=== PATIENT | male | born 1975 | race Caucasian/White ===

== ENCOUNTER 2016-12-29 09:00 | Day surgery (SDC) | payer MEDICAID ==
--- NOTE | 2016-12-26 20:37 | EKG REPORT ---
SEVERITY:- OTHERWISE NORMAL ECG - SINUS RHYTHM BORDERLINE LEFT AXIS DEVIATION : Confirmed by: Krysta Ellison 26-Dec-2016 20:36:36
[~2016-12-29 09:00] MED LIST: DEXAMETHASONE SOD PHOSPHATE INJ 4 MG/1 ML VIAL ONE; LACTATED RINGERS 1000 ML IV PRN; LIDOCAINE 0.5% INJ-PF (5 MG/ML) 50 ML SDV SUBCUT PRN; LIDOCAINE 2% INJ-PF (20 MG/ML) 10 ML AMPUL ONE; ONDANSETRON HCL INJ/PF 4 MG/2 ML SDV ONE; SUCCINYLCHOLINE CHLORIDE INJ 200 MG/10 ML VIAL ONE
[2016-12-29] MEDS ORDERED: LIDOCAINE 2%/EPINEPHRINE INJ 1.7 ML CARTRIDGE ONE ×2 (11:22→12:07)
[2016-12-29] MEDS ORDERED: BUPIVACAINE HCL 0.5%/EPI 1:200000 INJ 1.8 ML CARTRIDGE ONE (11:22)
[2016-12-29] MEDS ORDERED: PROPOFOL INJ 200 MG/20 ML VIAL IV ONE ×2 (11:33→13:00)
[2016-12-29] MEDS ORDERED: MIDAZOLAM 2 MG/2 ML INJ ONE (11:33)
[2016-12-29] MEDS ORDERED: FENTANYL CITRATE INJ/PF 100 MCG/2 ML AMPUL ONE ×2 (11:33→13:46)
[2016-12-29] MEDS ORDERED: ACETAMINOPHEN 100 ML IV ONE (11:34)
[2016-12-29] MEDS ORDERED: ALBUTEROL SULFATE 0.083% NEB 2.5 MG/3 ML AMPUL NEB ONE (11:51)
[2016-12-29] MEDS ORDERED: DIPHENHYDRAMINE HCL 50 MG/ML VIAL IV PRN (11:58)
[2016-12-29] MEDS ORDERED: FENTANYL CITRATE INJ/PF 100 MCG/2 ML AMPUL IV PRN ×3 (11:58)
[2016-12-29] MEDS ORDERED: PROMETHAZINE HCL INJ 25 MG/1 ML VIAL IV PRN ×2 (11:58)
[2016-12-29] MEDS ORDERED: MORPHINE SULFATE 10 MG/ML INJ IV PRN (11:58)
[2016-12-29] MEDS ORDERED: OXYCODONE-ACETAMINOPHEN 5-325 MG TABLET PO PRN ×3 (11:58→14:33)
[2016-12-29] MEDS ORDERED: MEPERIDINE HCL/PF INJ 25 MG/1 ML DISP.SYRIN IV PRN (11:58)
[2016-12-29] MEDS ORDERED: EPHEDRINE SULFATE INJ 50 MG/1 ML AMPULE ONE (12:11)
--- NOTE | 2016-12-29 13:38 | Operative Report ---
Operative Report DATE OF SURGERY: 12/29/16 PREOPERATIVE DIAGNOSIS: Dental caries POSTOPERATIVE DIAGNOSIS: Dental caries and cystic lesion left maxilla above apices of teeth numbers 10 and 11 OPERATION: Surgical removal of teeth numbers 1, 3, 4, 5, 6, 7, 8, 9, 10, 11, 13 , 14 and 16 and alveoloplasty of the upper right and upper left quadrants SURGEON: TONY HAJI ANESTHESIA: GA TISSUE REMOVED OR ALTERED: Teeth which were discarded COMPLICATIONS: None ESTIMATED BLOOD LOSS: 30 mL INTRAOPERATIVE FINDINGS: Nonrestorable teeth PROCEDURE: The patient was brought into operating room #1 and placed on the operating room table in supine position. General anesthesia was induced via a peripheral IV and continued utilizing endotracheal intubation. The patient was then prepped and draped in the usual fashion for an intraoral procedure. A total of 3 carpules of 2% lidocaine with 1:100,000 epinephrine were delivered to the planned surgical site via infiltration. The oral cavity and oropharynx were suctioned and a moistened oropharyngeal throat pack was placed. Full-thickness mucoperiosteal flaps were then developed via envelope incisions. Ostectomy was completed as needed. The teeth were delivered using elevators and forceps. In the area of tooth #3 there was a 2 mm diameter sinus opening noted. There was also an area of approximately 8 mm of exposed sinus membrane. Alveoloplasties were completed using rongeurs and bone file. All sites were irrigated with normal saline solution. Surgifoam was placed over the sinus opening and primary closure was accomplished using 4-0 chromic gut suture. There was a cystic lesion above the apices of numbers 10 and 11. This was curetted free and the specimen sent to pathology to confirm diagnosis of radicular cyst. The remaining flaps were reapproximated and sutured using 4-0 chromic gut suture. A bite block was used throughout the procedure. There was no sinus communication noted on the left side. The oral cavity was irrigated and suctioned. The throat pack was removed. The oropharynx was suctioned. Gauze packs were placed bilaterally to aid in continued hemostasis. The patient was awakened from anesthesia extubated in the operating room and taken recovery room and spontaneous breathing fashion.
[2016-12-29] MEDS ORDERED: OXYCODONE-ACETAMINOPHEN 5-325 MG TABLET PO ONE (14:30)
[2016-12-29 15:39] VITALS: BP 111/66
== END 2016-12-29 15:35 | disposition home or self-care (01) ==
LOC: OROUT 09:00
PROVIDERS: ATTEND Dentist Oral and Maxillofacial Surgery
PROC: 0NQRXZZ Repair Maxilla, External Approach (ICD-10-PCS; 2016-12-29)
PROC: 0NQSXZZ (ICD-10-PCS; 2016-12-29)
PROC: 0CDWXZ1 Extraction of Upper Tooth, Multiple, External Approach (ICD-10-PCS; principal; 2016-12-29 12:00)
DX: K02.9 Dental caries, unspecified (principal); F17.210 Nicotine dependence, cigarettes, uncomplicated; J44.9 Chronic obstructive pulmonary disease, unspecified; M19.90 Unspecified osteoarthritis, unspecified site; I25.2 Old myocardial infarction; Z88.2 Allergy status to sulfonamides; Z88.0 Allergy status to penicillin; Z88.6 Allergy status to analgesic agent; Z86.73 Personal history of transient ischemic attack (TIA), and cerebral infarction without residual deficits
CPT/HCPCS: 41899; 41874 ×2; 93005; 88304 ×2; 93010; J2250; J3490 ×2; J1100; J3010; J0330; J2405; J2704; J0131; 170

== ENCOUNTER 2016-12-30 21:04 | Emergency (ER) | payer MEDICAID ==
[2016-12-30] MEDS ORDERED: HYDROMORPHONE HCL 2 MG TABLET PO ONE (23:10)
[2016-12-30] MEDS ORDERED: CLINDAMYCIN HCL 150 MG CAPSULE PO ONE (23:10)
--- NOTE | 2016-12-30 23:27 | ER Document Report ---
ED General - General Chief Complaint: Post Surgical Bleeding Stated Complaint: MOUTH PAIN Time Seen by Provider: 12/30/16 22:48 TRAVEL OUTSIDE OF THE [place] IN LAST 30 DAYS: No - Related Data Allergies/Adverse Reactions: ibuprofen Allergy (Verified 12/23/16 13:44) GI upset nitroglycerin Allergy (Verified 12/23/16 14:04) Cardiac arrest Penicillins Allergy (Verified 12/23/16 13:44) Edema, Hives Sulfa (Sulfonamide Antibiotics) Allergy (Verified 12/23/16 13:44) Edema, Hives Past Medical History - Social History Smoking Status: Never Smoker Frequency of alcohol use: None Drug Abuse: None Lives with: Family Family History: Reviewed & Not Pertinent Patient has suicidal ideation: No Patient has homicidal ideation: No - Past Medical History Cardiac Medical History: Reports: Hx Coronary Artery Disease - BLOCKAGES STILL PRESENT, Hx Heart Attack - Multiple, Hx Hypertension - LOW AND HIGH? Pulmonary Medical History: Reports: Hx COPD - unsure? Denies: Hx Asthma, Hx Bronchitis, Hx Pneumonia Neurological Medical History: Denies: Hx Cerebrovascular Accident, Hx Seizures Renal/ Medical History: Denies: Hx Peritoneal Dialysis Musculoskeltal Medical History: Reports Hx Arthritis Past Surgical History: Reports: Hx Appendectomy, Hx Cardiac Surgery - CABG- Triple, Hx Oral Surgery - Immunizations Hx Diphtheria, Pertussis, Tetanus Vaccination: Yes Physical Exam - Vital signs Vitals: Pulse Resp BP Pulse Ox 52 L 18 129/69 H 98 12/30/16 21:22 12/30/16 21:22 12/30/16 21:22 12/30/16 21:22 Course - Vital Signs Vital signs: Temp Pulse Resp BP Pulse Ox 52 L 18 129/69 H 98 12/30/16 21:22 12/30/16 21:22 12/30/16 21:22 12/30/16 21:22 Discharge - Discharge Clinical Impression: Pain, dental, Surgical wound hemorrhage after dental procedure Condition: Stable Disposition: HOME, SELF-CARE Instructions: Toothache ([facility]), Oral Narcotic Medication ([facility]) Additional Instructions: Drink plenty fluids. Use a decaffeinated moistened teabag upon the bleeding area as needed. Use sterile gauze as needed for bleeding. Prescriptions: Hydromorphone HCl [Dilaudid 2 mg Tablet] 2 mg PO Q4HP PRN #30 tablet PRN Reason: Clindamycin HCl [Cleocin 300 mg Capsule] 300 mg PO TID #20 capsule Referrals: TONY HAJI DDS [ACTIVE STAFF] - Follow up as needed
[2016-12-30 23:31] VITALS: BP 114/67
== END 2016-12-30 23:37 | disposition home or self-care (01) ==
LOC: ER 21:04
DX: M96.831 Postprocedural hemorrhage of a musculoskeletal structure following other procedure (principal); K08.409 Partial loss of teeth, unspecified cause, unspecified class; Y83.6 Removal of other organ (partial) (total) as the cause of abnormal reaction of the patient, or of later complication, without mention of misadventure at the time of the procedure; Y82.8 Other medical devices associated with adverse incidents; I25.10 Atherosclerotic heart disease of native coronary artery without angina pectoris; I10 Essential (primary) hypertension; I25.2 Old myocardial infarction; Z95.1 Presence of aortocoronary bypass graft; Z88.0 Allergy status to penicillin; Z88.2 Allergy status to sulfonamides; Z88.6 Allergy status to analgesic agent
CPT/HCPCS: 99283; J3490 ×2

== ENCOUNTER 2018-05-03 20:01 | Emergency (ER) | payer MEDICAID ==
[2018-05-03] MEDS ORDERED: MORPHINE SULFATE 10 MG/ML INJ IV ONE ×2 (21:56→23:04)
[2018-05-03] MEDS ORDERED: ONDANSETRON HCL INJ/PF 4 MG/2 ML SDV IV ONE (21:56)
--- NOTE | 2018-05-03 22:02 | ER Document Report ---
ED General - General Chief Complaint: Chest Tightness Stated Complaint: SHORTNESS OF BREATH Time Seen by Provider: 05/03/18 21:38 Mode of Arrival: Ambulatory Information source: Patient Notes: 43-year-old male with coronary artery disease, hypertension, COPD presents with complaint of left upper quadrant abdominal pain and left flank pain. Patient states that left flank pain started 2 weeks prior to arrival. He describes he states initially the pain was an aching intermittent pain but over the last 3 days it has worsened and now radiates to the right upper quadrant. Patient denies any associated nausea, vomiting, diaphoresis, chest pain, dysuria, hematuria. He does have previous history of kidney stones. TRAVEL OUTSIDE OF THE [place] IN LAST 30 DAYS: No - HPI Onset: Other Onset/Duration: Gradual, Intermittent, Worse Quality of pain: Achy, Stabbing Severity: Moderate Associated symptoms: denies: Chest pain, Fever, Nausea, Vomiting, Shortness of breath Exacerbated by: Coughing Relieved by: Denies Similar symptoms previously: No Recently seen / treated by doctor: Yes - Related Data Allergies/Adverse Reactions: ibuprofen Allergy (Verified 12/23/16 13:44) GI upset nitroglycerin Allergy (Verified 12/23/16 14:04) Cardiac arrest Penicillins Allergy (Verified 12/23/16 13:44) Edema, Hives Sulfa (Sulfonamide Antibiotics) Allergy (Verified 12/23/16 13:44) Edema, Hives Past Medical History - General Information source: Patient, Friend, [facility] Records - Social History Smoking Status: Former Smoker Frequency of alcohol use: Occasional Drug Abuse: Marijuana Lives with: Spouse/Significant other Family History: Reviewed & Not Pertinent Patient has suicidal ideation: No Patient has homicidal ideation: No - Past Medical History Cardiac Medical History: Reports: Hx Coronary Artery Disease - BLOCKAGES STILL PRESENT, Hx Heart Attack - Multiple, Hx Hypertension - LOW AND HIGH? Pulmonary Medical History: Reports: Hx COPD - unsure? Denies: Hx Asthma, Hx Bronchitis, Hx Pneumonia Neurological Medical History: Denies: Hx Cerebrovascular Accident, Hx Seizures Renal/ Medical History: Denies: Hx Peritoneal Dialysis Musculoskeletal Medical History: Reports Hx Arthritis Past Surgical History: Reports: Hx Appendectomy, Hx Cardiac Surgery - CABG- Triple, Hx Oral Surgery - Immunizations Hx Diphtheria, Pertussis, Tetanus Vaccination: Yes Review of Systems - Review of Systems Notes: REVIEW OF SYSTEMS: CONSTITUTIONAL : Denies fever, chills, or sweats. Denies recent illness. Denies weight loss, recent hospitalizations. EENT: Denies visual changes, eye pain. Denies sore throat, oral lesions, difficulty swallowing. CARDIOVASCULAR: Denies chest pain. Denies palpitations. Denies lower extremity edema. RESPIRATORY: Denies shortness of breath, wheezing. GASTROINTESTINAL: Denies abdominal distention. Denies nausea, vomiting, or diarrhea. Denies blood in vomitus, stools, or per rectum. Denies black, tarry stools. Denies constipation. GENITOURINARY: Denies difficulty urinating, painful urination, frequency, blood in urine, testicular pain or penile discharge. MUSCULOSKELETAL: Denies back or neck pain or stiffness. Denies joint pain or swelling. SKIN: Denies rash, lesions or sores. HEMATOLOGIC : Denies easy bruising or bleeding. LYMPHATIC: Denies swollen glands. NEUROLOGICAL: Denies confusion or altered mental status. Denies loss of consciousness. Denies dizziness or lightheadedness. Denies headache. Denies weakness or paralysis. Denies problems difficulty with ambulation, slurred speech. Denies sensory loss, numbness, or tingling. Denies seizures. PSYCHIATRIC: Denies anxiety or stress. Denies depression, suicidal ideation, or Physical Exam - Vital signs Vitals: Temp Pulse BP Pulse Ox 97.8 F 58 L 120/76 97 05/03/18 20:33 05/03/18 20:33 05/03/18 20:33 05/03/18 20:33 - Notes Notes: PHYSICAL EXAMINATION: GENERAL: Well-appearing, well-nourished and in no acute distress. HEAD: Atraumatic, normocephalic. EYES: Pupils equal round and reactive to light, extraocular movements intact, sclera anicteric, conjunctiva are normal. ENT: Nares patent, oropharynx clear without exudates. Moist mucous membranes. NECK: Normal range of motion, supple without lymphadenopathy LUNGS: Breath sounds clear to auscultation bilaterally and equal. No wheezes rales or rhonchi. HEART: Regular rate and rhythm without murmurs ABDOMEN: Tender to palpation the left upper quadrant. Left flank tenderness. No guarding, no rebound. No masses appreciated. Musculoskeletal: Normal range of motion, no pitting or edema. No cyanosis. NEUROLOGICAL: Cranial nerves grossly intact. Normal speech, normal gait. Normal sensory, motor exams PSYCH: Normal mood, normal affect. SKIN: Surgical scar of the chest clean dry and intact.. Course - Re-evaluation Re-evalutation: Laboratory 05/03/18 05/03/18 05/03/18 22:21 22:21 22:21 WBC 10.5 RBC 4.73 Hgb 14.8 Hct 43.5 MCV 92 MCH 31.2 MCHC 34.0 RDW 13.5 Plt Count 235 Seg Neutrophils % 66.4 Lymphocytes % 24.7 Monocytes % 6.3 Eosinophils % 1.6 Basophils % 1.0 Absolute Neutrophils 7.0 Absolute Lymphocytes 2.6 Absolute Monocytes 0.7 Absolute Eosinophils 0.2 Absolute Basophils 0.1 Sodium 139.9 Potassium 4.4 Chloride 103 Carbon Dioxide 27 Anion Gap 10 BUN 14 Creatinine 1.28 H Est GFR ( Amer) > 60 Est GFR (Non-Af Amer) > 60 Glucose 85 Calcium 9.8 Total Bilirubin 0.5 Direct Bilirubin 0.4 Neonat Total Bilirubin Not Reportable Neonat Direct Bilirubin Not Reportable Neonat Indirect Bili Not Reportable AST 22 ALT 24 Alkaline Phosphatase 56 CK-MB (CK-2) 0.32 Troponin I < 0.012 Total Protein 7.5 Albumin 4.4 Urine Color Urine Appearance Urine pH Ur Specific [place] Urine Protein Urine Glucose (UA) Urine Ketones Urine Blood Urine Nitrite Urine Bilirubin Urine Urobilinogen Ur Leukocyte Esterase Urine WBC (Auto) Urine RBC (Auto) U Hyaline Cast (Auto) Squamous Epi Cells Auto Urine Mucus (Auto) Urine Ascorbic Acid Urine Opiates Screen Urine Methadone Screen Ur Barbiturates Screen Ur Phencyclidine Scrn Ur Amphetamines Screen U Benzodiazepines Scrn Urine Cocaine Screen U Marijuana (THC) Screen 05/03/18 05/03/18 22:21 22:21 WBC RBC Hgb Hct MCV MCH MCHC RDW Plt Count Seg Neutrophils % Lymphocytes % Monocytes % Eosinophils % Basophils % Absolute Neutrophils Absolute Lymphocytes Absolute Monocytes Absolute Eosinophils Absolute Basophils Sodium Potassium Chloride Carbon Dioxide Anion Gap BUN Creatinine Est GFR ( Amer) Est GFR (Non-Af Amer) Glucose Calcium Total Bilirubin Direct Bilirubin Neonat Total Bilirubin Neonat Direct Bilirubin Neonat Indirect Bili AST ALT Alkaline Phosphatase CK-MB (CK-2) Troponin I Total Protein Albumin Urine Color YELLOW Urine Appearance SLIGHTLY-CLOUDY Urine pH 5.0 Ur Specific [place] 1.031 Urine Protein 30 H Urine Glucose (UA) NEGATIVE Urine Ketones NEGATIVE Urine Blood NEGATIVE Urine Nitrite NEGATIVE Urine Bilirubin NEGATIVE Urine Urobilinogen 2.0 H Ur Leukocyte Esterase NEGATIVE Urine WBC (Auto) 2 Urine RBC (Auto) 1 U Hyaline Cast (Auto) 3 Squamous Epi Cells Auto 1 Urine Mucus (Auto) MANY Urine Ascorbic Acid NEGATIVE Urine Opiates Screen NEGATIVE Urine Methadone Screen NEGATIVE Ur Barbiturates Screen NEGATIVE Ur Phencyclidine Scrn NEGATIVE Ur Amphetamines Screen NEGATIVE U Benzodiazepines Scrn UNCONFIRMED POSITIVE Urine Cocaine Screen NEGATIVE U Marijuana (THC) Screen UNCONFIRMED POSITIVE Limited or Localized CT 05/03/18 21:40 IMPRESSION: Consolidation in the lingula, which could be symptomatic. No other clear etiology for left upper quadrant acute pain. TECHNIQUE: Images stored on PACS. All CT scanners at this facility use dose modulation, iterative reconstruction, and/or weight based dosing when appropriate to reduce radiation dose to as low as reasonably achievable (ALARA). [facility]: Dose Right [facility]: CareDose [facility]: Dose Right [facility]: Teradose 4D [facility]: [employer] LIMITATIONS: None. FINDINGS: IMPRESSION: TECHNICAL DOCUMENTATION: Quality ID # 436: Final reports with documentation of one or more dose reduction techniques (e.g., Automated exposure control, adjustment of the mA and/or kV according to patient size, use of iterative reconstruction technique) 2010 [employer]- All Rights Reserved Chest X-Ray 05/03/18 22:02 IMPRESSION: No acute disease. 43-year-old male with coronary artery disease, hypertension, COPD presents with complaint of left upper quadrant abdominal pain and left flank pain. Patient states that left flank pain started 2 weeks prior to arrival. He describes he states initially the pain was an aching intermittent pain but over the last 3 days it has worsened and now radiates to the right upper quadrant. Patient denies any associated nausea, vomiting, diaphoresis, chest pain, dysuria, hematuria. He does have previous history of kidney stones. Patient was seen by myself upon arrival. Vital signs were reviewed. Patient is afebrile, normotensive and not hypoxic. Patient does not appear toxic or dehydrated. They are in no acute distress. Previous medical records and nursing notes reviewed. Patient's exam is significant for tenderness with palpation to the left upper quadrant. No obvious injury, deformity, ecchymosis. CBC is without leukocytosis or anemia. CMP shows no electrolyte abnormalities. Troponin within normal limits. EKG unchanged. CT of the abdomen was obtained to assess for renal stone, aneurysm which were absent. It did reveal a consolidation in the lingula. Because of the patient's cough we will start him on doxycycline. Patient did receive morphine for pain and on reevaluation states that he is pain -free. 05/03/18 22:59 PERC negative. 05/03/18 23:51 I did speak to the radiologist regarding his read of a consolidation in the lingula. He states it is small but could possibly represent a pneumonia. Because of the patient's productive cough I will start him on doxycycline. 05/04/18 00:07 Patient provided the opportunity to ask questions, and express concerns. Discharge instructions discussed. Patient is agreeable with discharge home. Return indications explained and discussed with the patient who displays understanding. Patient encouraged to return to the emergency department immediately with any concerns. Results were discussed with the patient at this point, after careful consideration I feel that that patient can be discharged from the emergency department, the patient was educated treatments and reasons to return to the emergency department based on their presumed diagnosis as noted above, they were advised to followup with a primary care physician in 2-3 days. Patient was agreeable to plan of care. Dictation on this chart was performed using voice recognition software and may result in unintended grammatical, spelling, syntax or errors. 05/05/18 06:13 - Vital Signs Vital signs: Temp Pulse Resp BP Pulse Ox 97.7 F 58 L 15 118/79 95 05/04/18 00:00 05/03/18 20:33 05/04/18 00:00 05/04/18 00:00 05/04/18 00:01 - Laboratory Result Diagrams: 05/03/18 22:21 05/03/18 22:21 Laboratory results interpreted by me: 05/03/18 05/03/18 22:21 22:21 Creatinine 1.28 H Urine Protein 30 H Urine Urobilinogen 2.0 H - Diagnostic Test Radiology reviewed: Image reviewed, Reports reviewed - EKG Interpretation by Me EKG shows normal: Sinus rhythm Rate: Normal Rhythm: NSR When compared to previous EKG there are: No significant change Discharge - Discharge Clinical Impression: Left upper quadrant abdominal pain of unknown etiology, Cough, Lingular pneumonia, Flank pain Condition: Good Disposition: HOME, SELF-CARE Instructions: Abdominal Pain ([facility]), Flank Pain ([facility]), Pneumonia ([facility]) Additional Instructions: You have been diagnosed with a pneumonia. It is very important that you take all of your antibiotics until they are gone even if you are feeling better. Please return to the emergency department immediately if you began having worsening shortness of breath, become confused, have worsening pain, pass out, have persistent vomiting that prevents you from being able to drink fluids for more than 12 hours, or have any other symptoms that are worrisome to you. Please follow-up with your primary care doctor in the next 1-2 days. Most prescribed medications have multiple side effects. The safest thing to do is when filling your prescription please speak to your pharmacist regarding possible interactions with your normal home medications and over the counter medications such as Ibuprofen, Tylenol, Benadryl.. If you experience any symptoms that cause you discomfort or concern you should discontinue the medication immediately and return to the emergency room or call your primary care physician. Follow up with your physician tomorrow for further care or return to the ED IMMEDIATELY if symptoms worsen or new concerns occur. If you cannot afford to follow up with your primary care physician a list of low cost clinics have been provided at the end of your discharge papers as well. You have been seen in the Emergency Department (ED) for abdominal pain. Your evaluation did not identify a clear cause of your symptoms but was generally reassuring. Please follow up with your doctor as soon as possible regarding today's emergent visit and the symptoms that are bothering you. Return to the ED if your abdominal pain worsens or fails to improve, you develop bloody vomiting, bloody diarrhea, you are unable to tolerate fluids due to vomiting, fever greater than 101, or other symptoms that concern you. Prescriptions: Doxycycline Hyclate 100 mg PO BID #14 capsule Oxycodone HCl/Acetaminophen [Percocet 5-325 mg Tablet] 1 tab PO Q6H PRN #10 tab PRN Reason:
[2018-05-03 22:38] LABS: ABSOLUTE BASOPHILS # (AUTO) 0.1 10^3/uL (0.0-0.2); ABSOLUTE EOSINOPHILS # (AUTO) 0.2 10^3/uL (0.0-0.6); ABSOLUTE LYMPHOCYTES (AUTO) 2.6 10^3/uL (0.5-4.7); ABSOLUTE MONOCYTES (AUTO) 0.7 10^3/uL (0.1-1.4); EOSINOPHILS % (AUTO) 1.6 % (0-6); HEMATOCRIT 43.5 % (37.9-51.0); HEMOGLOBIN 14.8 g/dL (13.5-17.0); LYMPHOCYTES % (AUTO) 24.7 % (13-45); MEAN CORPUSCULAR HEMOGLOBIN 31.2 pg (27.0-33.4); MEAN CORPUSCULAR VOLUME 92 fl (80-97); MONOCYTES % (AUTO) 6.3 % (3-13); PLATELET COUNT 235 10^3/uL (150-450); RED BLOOD COUNT 4.73 10^6/uL (4.35-5.55); RED CELL DISTRIBUTION WIDTH 13.5 % (11.5-14.0); SEGMENTED NEUTROPHILS % (AUTO) 66.4 % (42-78); TOTAL CELLS COUNTED % (AUTO) 100 %; WHITE BLOOD COUNT 10.5 10^3/uL (4.0-10.5)
[2018-05-03 22:45] LABS: APPEARANCE,URINE SLIGHTLY-CLOUDY; BILIRUBIN,URINE NEGATIVE (NEGATIVE); GLUCOSE, URINE NEGATIVE (NEGATIVE); KETONES,URINE NEGATIVE (NEGATIVE); LEUKOCYTE ESTERASE,URINE NEGATIVE (NEGATIVE); NITRITE,URINE NEGATIVE (NEGATIVE); PROTEIN,URINE 30 mg/dL (NEGATIVE); URINE SPECIFIC GRAVITY 1.031
[2018-05-03 22:48] LABS: COLOR,URINE YELLOW
--- NOTE | 2018-05-03 22:53 | RADIOLOGY REPORT (SQ) ---
Chest 2 view on 05/03/2018 at 11:08 PM CLINICAL INDICATION: Cough COMPARISON: 12/26/2017 FINDINGS: The patient is status post median sternotomy. The lungs are clear. Cardiac, hilar and mediastinal contours are within normal limits. Pulmonary vascularity is within normal limits. IMPRESSION: No acute disease.
--- NOTE | 2018-05-03 22:54 | RADIOLOGY REPORT (SQ) ---
EXAM DESCRIPTION: CT ABDOMEN WITHOUT IV CONTRAST COMPLETED DATE/TME: 05/03/2018 21:40 CLINICAL HISTORY: 43 years, Male, luq pain COMPARISON: EXAM DESCRIPTION: CLINICAL HISTORY: luq pain COMPARISON: None Available TECHNIQUE: Contiguous axial images of the abdomen and pelvis were obtained after the administration of intravenous contrast followed by reconstruction images.This exam was performed according to our departmental dose-optimization program, which includes automated exposure control, adjustment of the mA and/or kV according to patient size and/or use of iterative reconstruction technique. FINDINGS: There is colonic diverticulosis. No definite diverticulitis. The appendix is not well seen but there is no definite evidence of appendicitis. There is a small hiatal hernia. No definite pancreatic abnormality. There is consolidation in the lingula. This could be symptomatic. Atelectasis involves the left lung base. The liver, spleen, pancreas and kidneys are otherwise within normal limits. There is no hydronephrosis. The gallbladder is unremarkable. Adrenal glands are within normal limits. Aorta is normal in caliber and tapering. No significant free fluid. No free air. No bowel obstruction. There is no stranding of the mesenteric fat. IMPRESSION: Consolidation in the lingula, which could be symptomatic. No other clear etiology for left upper quadrant acute pain. TECHNIQUE: Images stored on PACS. All CT scanners at this facility use dose modulation, iterative reconstruction, and/or weight based dosing when appropriate to reduce radiation dose to as low as reasonably achievable (ALARA). [facility]: Dose Right [facility]: CareDose [facility]: Dose Right [facility]: Teradose 4D [facility]: [employer] LIMITATIONS: None. FINDINGS: IMPRESSION: TECHNICAL DOCUMENTATION: Quality ID # 436: Final reports with documentation of one or more dose reduction techniques (e.g., Automated exposure control, adjustment of the mA and/or kV according to patient size, use of iterative reconstruction technique) 2010 [employer]- All Rights Reserved
[2018-05-03 22:56] LABS: URINE AMPHETAMINES SCREEN NEGATIVE; URINE BARBITURATES SCREEN NEGATIVE; URINE BENZODIAZEPINES SCREEN UNCONFIRMED POSITIVE; URINE COCAINE SCREEN NEGATIVE; URINE MARIJUANA (THC) SCREEN UNCONFIRMED POSITIVE; URINE METHADONE SCREEN NEGATIVE; URINE PHENCYCLIDINE SCREEN NEGATIVE
[2018-05-03 23:22] LABS: ALANINE AMINOTRANSFERASE 24 U/L (21-72); ALBUMIN 4.4 g/dL (3.5-5.0); ALKALINE PHOSPHATASE 56 U/L (38-126); ANION GAP 10 (5-19); ASPARTATE AMINO TRANSFERASE 22 U/L (17-59); BILIRUBIN,DIRECT 0.4 mg/dL (0.0-0.4); BILIRUBIN,TOTAL 0.5 mg/dL (0.2-1.3); BLOOD UREA NITROGEN 14 mg/dL (7-20); CALCIUM 9.8 mg/dL (8.4-10.2); CARBON DIOXIDE 27 mmol/L (22-30); CHLORIDE 103 mmol/L (98-107); GLUCOSE 85 mg/dL (75-110); POTASSIUM 4.4 mmol/L (3.6-5.0); SODIUM 139.9 mmol/L (137-145); TOTAL PROTEIN 7.5 g/dL (6.3-8.2)
[2018-05-03 23:30] LABS: CREATINE KINASE MB 0.32 ng/mL (<4.55)
[2018-05-03 23:33] LABS: TROPONIN I < 0.012 ng/mL
[2018-05-03] MEDS ORDERED: DOXYCYCLINE HYCLATE 100 MG TABLET PO ONE (23:51)
[2018-05-04 00:20] VITALS: BP 118/79
--- NOTE | 2018-05-04 10:29 | EKG REPORT ---
SEVERITY:- NORMAL ECG - SINUS RHYTHM : Confirmed by: Roro Hightower MD 04-May-2018 10:28:21
== END 2018-05-04 00:30 | disposition home or self-care (01) ==
LOC: ER 20:01
DX: R10.12 Left upper quadrant pain (principal); J18.1 Lobar pneumonia, unspecified organism; R05 Cough; R07.9 Chest pain, unspecified; R06.02 Shortness of breath; R10.11 Right upper quadrant pain; I25.10 Atherosclerotic heart disease of native coronary artery without angina pectoris; I10 Essential (primary) hypertension; J44.9 Chronic obstructive pulmonary disease, unspecified; Z87.891 Personal history of nicotine dependence
CPT/HCPCS: 93005; 96376; 99285; 96374; 96375; 36415; 82553; 85025; 80053; 81001; 84484; 80307; 71046; 76380; 93010; J3490; J2270; J2405